=== PATIENT | female | born 1990 | race Hispanic/Latino ===

== ENCOUNTER 2025-07-01 12:26 | Emergency (ER) | payer OTHER, SELFPAY ==
[2025-07-01 12:58] VITALS: BP 143/81; PULSE 97; RESP 18; TEMP 36.8; O2SAT 96; BMI 38.2
[2025-07-01 17:02] VITALS: PULSE 90; O2SAT 96
[2025-07-01 17:03] VITALS: BP 122/68; PULSE 94; O2SAT 97
[2025-07-01 17:11] LABS: Add Manual Diff / Slide Review NO; Hematocrit 39.8 % (36-46); Hemoglobin 13.3 g/dL (12.0-16.0); Lymphocytes Absolute Auto 2300 /uL (1100-4500); Mean Corpuscular HGB Conc 33.3 % (30-36); Mean Corpuscular Hemoglobin 29.4 PG (26-34); Mean Corpuscular Volume 88.3 fL (80-100); Platelet Count 310 X10^3/uL (150-400)
[2025-07-01 17:26] LABS: Alanine Aminotransferase 30 IU/L (<35); Albumin 4.8 g/dL (3.5-5.0); Albumin Globulin Ratio 1.5 (1.0-2.8); Alkaline Phosphatase 86 U/L (38-126); Blood Urea Nitrogen 10 mg/dL (7-17); Calcium 9.2 mg/dL (8.4-10.2); Carbon Dioxide 23 mmol/L (22-32); Chloride 105 mmol/L (98-107); Estimated Glomerular Filt Rate > 60 mL/min (>60); Globulin 3.3 g/dL (1.7-4.1); Glucose 109 mg/dL (70-99); HEMOLYSIS < 15 (0-50); Lipase 95 U/L (23-300); Potassium 3.8 mmol/L (3.4-5.1); Sodium 139 mmol/L (137-145); Total Protein 8.1 g/dL (6.3-8.2)
[2025-07-01 17:30] VITALS: BP 112/67; PULSE 87; O2SAT 97
--- NOTE | 2025-07-01 17:50 | ED_ITS ---
HPI - Abdominal Pain General Chief Complaint: Abdominal Pain Stated Complaint: Pain in lower abdomen, swollen L breast Time Seen by Provider: 07/01/25 16:13 Source: patient Mode of arrival: Family Vehicle History of Present Illness HPI narrative: Patient here with her sister. Complaints 2 weeks of constant waxing waning bilateral pelvic pain. Patient has always had discomfort with her menstrual cycles. She stopped using control pills 2 or 3 years ago. She does not have established radio message router services. No previous pregnancies. Patient seen at [facility] recently and had laboratory studies and ultrasound of the pelvis which was unremarkable. No urinary complaints. Does have discomfort with bowel movements. No prior abdominal surgical history. Related Data Previous Rx's ?Medication ?Instructions ?Recorded ibuprofen 800 mg tablet 800 mg PO Q8H PRN pain #20 t abs 07/01/25 Allergies Allergy/AdvReac Type Severity Reaction Status Date / Time No Known Drug Allergies Allergy Verified 07/01/25 13:05 Review of Systems Review of Systems Narrative: GENERAL: Negative chills, fatigue, malaise, fever, sweats. HEENT: Negative sinus pain, ear pain, sore throat RESPIRATORY: Negative dyspnea, cough CARDIOVASCULAR: Negative chest pain, palpitations GASTROINTESTINAL: Negative vomiting, nausea, positive abdominal pain : Negative dysuria, frequency, hematuria MUSCULOSKELETAL: Negative muscle or bony pain SKIN: Negative rash, skin lesions NEUROLOGIC: Negative weakness, numbness ROS Unobtainable: All systems reviewed & are unremarkable except as noted in HPI and below Exam Narrative Exam Narrative: GENERAL: in no distress, not toxic not dyspneic HEAD: Normocephalic. EYES: Pupils equal round ENT: Mucous membranes moist. NECK: Trachea midline. CARDIOVASCULAR: Regular rate and rhythm RESPIRATORY: Clear to auscultation. Breath sounds equal bilaterally. No wheezes, rales, or rhonchi. GASTROINTESTINAL: Abdomen soft, mild bilateral lower quadrant tenderness no peritoneal signs no McBurney point tenderness. No guarding no rebound. No CVA tenderness. Bowel sounds are present. EXTREMITIES: No gross deformities. BACK: No flank tenderness. NEURO: AOx4. Clear speech SKIN: Warm and dry PSYCH: Not anxious, is cooperative Initial Vital Signs Initial Vital Signs: Vital Signs Temperature 98.2 F 07/01/25 12:58 Pulse Rate 97 H 07/01/25 12:58 Respiratory Rate 18 07/01/25 12:58 Blood Pressure 143/81 H 07/01/25 12:58 Pulse Oximetry 96 07/01/25 12:58 Oxygen Delivery Method Room Air 07/01/25 12:58 Course Orders Ordered: Discontinued Medications Sodium Chloride (Normal Saline 0.9%) 1,000 mls @ 1,000 mls/hr IV BOLUS ONE Stop: 07/01/25 18:49 Last Infusion: 07/01/25 19:09 Dose: Infused Documented By: Admin: 07/01/25 18:23 Dose: 1,000 mls/hr Documented By: KONRAD Ketorolac Tromethamine (Ketorolac 30 Mg/Ml Vial) 15 mg IV NOW ONE Stop: 07/01/25 17:51 Last Admin: 07/01/25 18:26 Dose: 15 mg Documented By: KONRAD Vital Signs Vital signs: Vital Signs - 8 hr 07/01/25 12:58 07/01/25 17:02 07/01/25 17:03 Temperature 98.2 F Pulse Rate 97 H 90 94 H Respiratory Rate 18 Blood Pressure 143/81 H Pulse Oximetry 96 96 97 Oxygen Delivery Method Room Air 07/01/25 17:03 Temperature Pulse Rate Respiratory Rate Blood Pressure 122/68 Pulse Oximetry Oxygen Delivery Method MDM - Abdominal Pain Lab Data 07/01/25 17:03 07/01/25 17:03 Labs: Lab Results 07/01/25 07/01/25 Range/Units 16:24 17:03 WBC 9.0 (4.5-11.0) X10^3/uL RBC 4.51 (4.0-5.2) X10^6/uL Hgb 13.3 (12.0-16.0) g/dL Hct 39.8 (36-46) % MCV 88.3 (80-100) fL MCH 29.4 (26-34) PG MCHC 33.3 (30-36) % RDW 14.2 (11.6-14.8) % Plt Count 310 (150-400) X10^3/uL Neut % (Auto) 67.6 (50-75) % Lymph % (Auto) 25.2 (25-40) % [place] % (Auto) 6.0 (3-14) % Eos % (Auto) 0.5 L (2-4) % Baso % (Auto) 0.7 (0-2) % Neut # (Auto) 6100 (8032-1788) /uL Lymph # (Auto) 2300 (0336-9400) /uL [place] # (Auto) 500 (0-900) /uL Eos # (Auto) 0 (0-450) /uL Baso # (Auto) 100 (0-100) /uL Sodium 139 (137-145) mmol/L Potassium 3.8 (3.4-5.1) mmol/L Chloride 105 (98-107) mmol/L Carbon Dioxide 23 (22-32) mmol/L BUN 10 (7-17) mg/dL Creatinine 0.67 (0.52-1.04) mg/dL Estimated GFR > 60 (>60) mL/min BUN/Creatinine Ratio 14.9 (6-22) Glucose 109 H (70-99) mg/dL Calcium 9.2 (8.4-10.2) mg/dL Total Bilirubin 0.4 (0.2-1.3) mg/dL AST 29 (14-36) IU/L ALT 30 (<35) IU/L Alkaline Phosphatase 86 (38-126) U/L Total Protein 8.1 (6.3-8.2) g/dL Albumin 4.8 (3.5-5.0) g/dL Globulin 3.3 (1.7-4.1) g/dL Albumin/Globulin Ratio 1.5 (1.0-2.8) Lipase 95 (23-300) U/L Urine RBC None seen (0-5/HPF) Urine WBC None seen (0-5/HPF) Ur Squamous Epith Cells None seen (0-5/HPF) Urine Bacteria None seen (None) Vol Urine Centrifuged 10ml (spun) Point of care testing: Point of Care Testing Test Results Negative Urine Dip Bedside Urine Glucose Negative Bedside Urine Bilirubin - Negative Bedside Urine Ketone - Negative Urine Specific [place] 1.010 Bedside Urine Occult Blood +/- Bedside Urine pH 5.5 Bedside Urine Protein - Negative Bedside Urine Urobilinogen - Negative Bedside Urine Nitrite - Negative Bedside Urine Leukocytes - Negative Esterase Imaging Data CT scan - abdomen/pelvis: Radiologist's Impression: [address] [address] [address] Scan Report Signed Patient: Marilee Law MR#: [id number] : 1990 Acct:[id number] Age/Sex: 35 / F Date of Service: 07/01/25 Loc: ED Accession Number: [id number] Procedure: CT abdomen pelvis w con Ordering Provider: Pablo Bowling MD PROCEDURE: CT ABDOMEN PELVIS W CON INDICATIONS: Lower abdominal pain TECHNIQUE: After the administration of intravenous contrast, axial sections acquired from the lung bases to the pubic symphysis. Coronal and sagittal reformats were performed. For radiation dose reduction, the following was used: automated exposure control, adjustment of mA and/or kV according to patient size. COMPARISON: None. FINDINGS: Image quality: Diagnostic. Lower Chest: No significant findings. ABDOMEN: Liver: No solid mass. Gallbladder: No radiopaque gallstones or wall thickening. Biliary ducts: No biliary dilation. Pancreas: No ductal dilation. Spleen: Size is within normal limits. Adrenal Glands: No adrenal nodules. Kidneys and Ureters: No hydronephrosis. No solid mass. No complex renal cystic lesion which requires follow up. Stomach and Bowel: Normal colonic caliber, without significant wall thickening. The appendix is unremarkable. Peritoneum: No abnormal intraperitoneal fluid. No free air. Ventral Wall: No significant ventral hernia. Abdominal Nodes: No retroperitoneal or mesenteric adenopathy by size criteria. Vessels: Aorta and inferior vena cava are normal in size. PELVIS: Pelvic Organs: Unremarkable. Bladder: No bladder wall thickening, accounting for underdistention. Pelvic Nodes: No enlarged lymph nodes. Miscellaneous: No inguinal hernias are seen. Bones: No aggressive osseous abnormality. IMPRESSION: No acute intra-abdominal abnormality seen. Dictated by: Luis Manuel Woody M.D. on 07/01/2025 at 18:32 Approved by: Luis Manuel Woody M.D. on 07/01/2025 at 18:37 [facility] Narrative Medical decision making narrative: Patient here with her sister. Complaints 2 weeks of constant waxing waning bilateral pelvic pain. Patient has always had discomfort with her menstrual cycles. She stopped using control pills 2 or 3 years ago. She does not have established radio message router services. No previous pregnancies. Patient seen at [facility] recently and had laboratory studies and ultrasound of the pelvis which was unremarkable. No urinary complaints. Does have discomfort with bowel movements. No prior abdominal surgical history. MDM After history and exam, CBC CMP urinalysis test CT abdomen pelvis Toradol normal saline Differential considered: Includes but not limited to PID cystitis UTI appendicitis colitis Medical records reviewed: [facility] SaturdayJune 21, 2025 laboratory studies ultrasound results Lab Test results independently reviewed as above. Pertinent findings: WBC 9.0 hemoglobin 13 sodium 139 potassium 3.8 BUN 10 creatinine 0.67 negative , urinalysis negative nitrite negative leukocytes Imaging studies independently reviewed: CT abdomen pelvis no acute finding Consultations: None indicated at this time Re-evaluations: 6:40 p.m.. Patient feeling much better. Smiling. Pain-free. Reviewed results with her. She will need follow up with OBGYN. Referral provided for her. Return precautions reviewed. She desires discharge home. Prescription for ibuprofen will be provided. Discussion: Appropriate for discharge home. Exam and laboratory studies imaging studies reassuring. Pain-free at time of discharge with conservative treatment with Toradol. IV contrast used for CT imaging. Diagnosis: Abdominal pain Discharge Plan Departure Patient Disposition: Home Clinical Impression: Abdominal pain Qualifiers: Abdominal location: lower abdomen, unspecified Qualified Code(s): R10.30 - Lower abdominal pain, unspecified Instructions: DI for Abdominal Pain-Adult Activity Restrictions/Additional Instructions: Your exam laboratory studies and imaging studies are reassuring. I am glad you are feeling better. Prescription for ibuprofen 800 mg tablets have been provided for you. Please call provided OBGYN services tomorrow for follow up appointment. Return if worse if any questions or concerns. Prescriptions: New ibuprofen 800 mg tablet 800 mg PO Q8H PRN (Reason: pain) Qty: 20 0RF Referrals: Miranda Gaytan MD [Physician, [employer] [facility]] Stand Alone Forms: Patient Portal/API
[2025-07-01 18:00] VITALS: BP 119/75; PULSE 94; O2SAT 96
[2025-07-01] MEDS: SODIUM CHLORIDE 0.9% 1,000 ML 1000 ML IV (18:23)
[2025-07-01] MEDS: KETOROLAC 30 MG/ML VIAL 15 MG IV (18:26)
[2025-07-01 18:30] VITALS: BP 115/62; PULSE 80; O2SAT 96
== END 2025-07-01 19:00 | disposition home or self-care (01) ==
PROVIDERS: Emergency Provider Emergency Medicine
DX: R10.30 Lower abdominal pain, unspecified (principal)
CPT/HCPCS: 74177; 80053; 81003; 81015; 81025; 83690; 85025; 87086; 96361; 96374; 99283; 99284; J1885; Q9967